=== PATIENT | male | born 2000 | race Hispanic/Latino ===

== ENCOUNTER 2025-04-02 09:41 | Emergency (ER) | payer OTHER ==
[~2025-04-02] VITALS: Ht 167.6 cm; Wt 83.8 kg
[2025-04-02] MEDS ORDERED: ACET-683 PO (10:11)
[2025-04-02] MEDS: KETOROLAC 30 MG/ML 1 ML VIAL IV ONE (11:35)
[2025-04-02] MEDS: ONDANSETRON 4MG/2ML VIAL IV ONE (11:36)
[2025-04-02 11:45] LABS: BASO # 0.1 10^3/uL (0.0-0.2); BASO % 1.1 % (0.0-1.0); EOS # 0.2 10^3/uL (0.0-0.5); EOS % 2.1 % (0.0-3.0); LYMPH # 2.9 10^3/uL (1.5-5.0); LYMPH % 39.8 % (24.0-44.0); MONO # 0.7 10^3/uL (0.0-0.8); MONO % 9.1 % (2.0-8.0); NEUTROPHILS # 3.5 10^3/uL (1.5-8.5); NEUTROPHILS % 47.6 % (36.0-66.0); PLATELET COUNT, AUTOMATED 367 10^3/uL (150-450)
[2025-04-02 11:50] LABS: KETONE, URINE AUTO RFX NEGATIVE (NEGATIVE); LEUKOCYTE ESTERASE UR AUTO RFX NEGATIVE (NEGATIVE); MUCUS, URINE RFX SMALL (NEGATIVE); NITRITE, URINE AUTO RFX NEGATIVE (NEGATIVE); RBC, URINE AUTO RFX 3 /HPF (0-3); SQUAM EPITHELIAL CELL UR AURFX 0 /HPF (0-6); WBC, URINE AUTO RFX 0 /HPF (0-3)
[2025-04-02 12:11] LABS: ALT/SGPT 279 U/L (7.0-40); AST/SGOT 146 U/L (<34); CALCIUM LEVEL 10.0 MG/DL (8.5-10.1); CARBON DIOXIDE LEVEL 29 MMOL/L (20-31); CHLORIDE LEVEL 101 MMOL/L (98-107); CREATININE FOR GFR 0.90 MG/DL (0.70-1.30); GLOMERULAR FILTRATION RATE > 90.0 (>60); POTASSIUM SERUM 4.2 MMOL/L (3.5-5.1); SODIUM LEVEL 139 MMOL/L (136-145)
[2025-04-02 13:17] LABS: HEPATITIS C VIRUS ABY INDEX < 0.02 INDEX (<0.8)
[2025-04-02] MEDS ORDERED: PRED10TA2 PO (13:32)
[2025-04-02] MEDS ORDERED: NAPR-837 PO (13:32)
[2025-04-02 13:42] VITALS: BP 115/68; TEMP 97; O2SAT 97
== END 2025-04-02 13:44 | disposition home or self-care (01) ==
LOC: M ED 09:41
DX: K52.9 Noninfective gastroenteritis and colitis, unspecified (principal); B18.9 Chronic viral hepatitis, unspecified; Z79.1 Long term (current) use of non-steroidal anti-inflammatories (NSAID); Z79.52 Long term (current) use of systemic steroids; Z79.899 Other long term (current) drug therapy
CPT/HCPCS: 74176; 80048; 80074; 80076; 81001; 83690; 85025; 96374; 96375; 99284; J1885; J2405; J2919

== ENCOUNTER 2025-04-08 09:08 | Emergency (ER) | payer OTHER ==
[~2025-04-08] VITALS: Ht 167.6 cm; Wt 84.5 kg
[~2025-04-08 09:08] MED LIST: ACET-683 PO; NAPR-837 PO; PRED10TA2 PO
[2025-04-08] MEDS: PANTOPRAZOLE 40MG VIAL IV ONE (10:21)
[2025-04-08] MEDS: ONDANSETRON 4MG/2ML VIAL IV ONE (10:22)
[2025-04-08] MEDS: KETOROLAC 30 MG/ML 1 ML VIAL IV ONE (10:22)
[2025-04-08] MEDS: NS (Normal Saline) 0.9% 1,000 ML IV ONE (10:22)
[2025-04-08 10:30] LABS: BASO # 0.1 10^3/uL (0.0-0.2); BASO % 0.3 % (0.0-1.0); EOS # 0.0 10^3/uL (0.0-0.5); EOS % 0.2 % (0.0-3.0); LYMPH # 2.7 10^3/uL (1.5-5.0); LYMPH % 17.0 % (24.0-44.0); MONO # 1.5 10^3/uL (0.0-0.8); MONO % 9.5 % (2.0-8.0); NEUTROPHILS # 11.2 10^3/uL (1.5-8.5); NEUTROPHILS % 70.2 % (36.0-66.0); PLATELET COUNT, AUTOMATED 370 10^3/uL (150-450)
[2025-04-08 10:53] LABS: INR 0.88
[2025-04-08 11:06] LABS: ALT/SGPT 165 U/L (7.0-40); AST/SGOT 46 U/L (<34); CALCIUM LEVEL 8.6 MG/DL (8.5-10.1); CARBON DIOXIDE LEVEL 27 MMOL/L (20-31); CHLORIDE LEVEL 103 MMOL/L (98-107); CREATININE FOR GFR 0.82 MG/DL (0.70-1.30); GLOMERULAR FILTRATION RATE > 90.0 (>60); POTASSIUM SERUM 3.9 MMOL/L (3.5-5.1); SODIUM LEVEL 140 MMOL/L (136-145)
[2025-04-08 11:10] VITALS: BP 134/93; TEMP 98.1; O2SAT 98
[2025-04-08 11:34] LABS: KETONE, URINE AUTO RFX NEGATIVE (NEGATIVE); LEUKOCYTE ESTERASE UR AUTO RFX NEGATIVE (NEGATIVE); MUCUS, URINE RFX SMALL (NEGATIVE); NITRITE, URINE AUTO RFX NEGATIVE (NEGATIVE); RBC, URINE AUTO RFX 0 /HPF (0-3); SQUAM EPITHELIAL CELL UR AURFX 0 /HPF (0-6); WBC, URINE AUTO RFX 0 /HPF (0-3)
[2025-04-08] MEDS: MAGNESIUM CITRATE 300 ML BTL PO ONE (11:49)
== END 2025-04-08 11:54 | disposition home or self-care (01) ==
LOC: M ED 09:08
DX: K59.00 Constipation, unspecified (principal); Z79.1 Long term (current) use of non-steroidal anti-inflammatories (NSAID); Z79.52 Long term (current) use of systemic steroids; Z79.899 Other long term (current) drug therapy
CPT/HCPCS: 74176; 80048; 80076; 81001; 83690; 85025; 85610; 96361; 96374; 96375; 99284; J1885; J2405; J2470